=== PATIENT | male | born 1990 | race Two or more races ===

== ENCOUNTER 2018-06-06 20:05 | Emergency (ER) | payer SELFPAY ==
[2018-06-06] MEDS ORDERED: DIAZEPAM INJ 10 MG/2 ML DISP.SYRIN IV ONE (20:22)
[2018-06-06] MEDS ORDERED: KETOROLAC TROMETHAMINE INJ/PF 30 MG/1 ML SDV IV ONE (20:23)
--- NOTE | 2018-06-06 20:25 | ER Document Report ---
ED Medical Screen (RME) - General Chief Complaint: Swallowed Foreign Body Stated Complaint: FOREIGN OBJECT IN THROAT Time Seen by Provider: 06/06/18 20:21 Mode of Arrival: Ambulatory Information source: Patient Notes: 25 years old male had a scratchy throat 2 days ago, today ate some pork strips 2 hours prior to arrival. Since then having a sensation of dysphagia. He was able to drink liquids but not solids. TRAVEL OUTSIDE OF THE [place] IN LAST 30 DAYS: No Past Medical History - Social History Chew tobacco use (# tins/day): No Frequency of alcohol use: Occasional Drug Abuse: None Renal/ Medical History: Denies: Hx Peritoneal Dialysis Physical Exam - Vital signs Vitals: Temp Pulse Resp BP Pulse Ox 98.8 F 60 16 131/79 H 99 06/06/18 20:12 06/06/18 20:12 06/06/18 20:12 06/06/18 20:12 06/06/18 20:12 Course - Vital Signs Vital signs: Temp Pulse Resp BP Pulse Ox 98.8 F 60 16 131/79 H 99 06/06/18 20:12 06/06/18 20:12 06/06/18 20:12 06/06/18 20:12 06/06/18 20:12
[2018-06-06] MEDS ORDERED: GLUCAGON,HUMAN RECOMB 1 MG INJ SUBCUT ONE (20:30)
[2018-06-06] MEDS ORDERED: GLUCAGON,HUMAN RECOMB 1 MG INJ IV ONE (20:44)
--- NOTE | 2018-06-06 21:14 | ER Document Report ---
ED Foreign Body - General Mode of Arrival: Ambulatory Information source: Patient TRAVEL OUTSIDE OF THE [place] IN LAST 30 DAYS: No - General Chief Complaint: Swallowed Foreign Body Stated Complaint: FOREIGN OBJECT IN THROAT Time Seen by Provider: 06/06/18 20:21 Notes: 27-year-old [place]occan-speaking male that presents to the emergency department today with complaints of a sensation that something is "stuck in his throat". Patient states he has had 2-3 days of throat inflammation. Patient describes the sensation as something "sliding down and then back up with burning". Patient states he was eating shredded meat when his symptoms began. Patient denies a history of GERD. Patient states he has associated shortness of breath but denies any vomiting or nasal congestion. (JOHNATHON RUTLEDGE) - Related Data Allergies/Adverse Reactions: vancomycin Allergy (Verified 06/06/18 20:26) Past Medical History - General Information source: Patient - Social History Smoking Status: Current Every Day Smoker Cigarette use (# per day): Yes Chew tobacco use (# tins/day): No Frequency of alcohol use: Social Drug Abuse: None Lives with: Family Family History: Reviewed & Not Pertinent Patient has suicidal ideation: No Patient has homicidal ideation: No Surgical Hx: Negative Review of Systems - Review of Systems Constitutional: No symptoms reported EENT: See HPI, Other - "something stuck in throat". denies: Nose congestion Cardiovascular: No symptoms reported Respiratory: See HPI, Short of breath Gastrointestinal: See HPI, Vomiting - x1 initially, none since Genitourinary: No symptoms reported Male Genitourinary: No symptoms reported Musculoskeletal: No symptoms reported Skin: No symptoms reported Hematologic/Lymphatic: No symptoms reported Neurological/Psychological: No symptoms reported -: Yes All other systems reviewed and negative Physical Exam - Vital signs Vitals: Temp Pulse Resp BP Pulse Ox 98.8 F 60 16 131/79 H 99 06/06/18 20:12 06/06/18 20:12 06/06/18 20:12 06/06/18 20:12 06/06/18 20:12 - Notes Notes: PHYSICAL EXAM GENERAL: Alert, interacts well. No acute distress. HEAD: Normocephalic, atraumatic. EYES: Pupils equal, round, and reactive to light. Extraocular movements intact. ENT: Oral mucosa moist, tongue midline. Bifid uvula. Airway is patent, no foreign body appreciated. Post nasal drainage. Cobblestoning of the posterior oropharynx. NECK: Full range of motion. Supple. Trachea midline. LUNGS: Clear to auscultation bilaterally, no wheezes, rales, or rhonchi. No respiratory distress. HEART: Regular rate and rhythm. No murmurs, gallops, or rubs. ABDOMEN: Soft, non-tender. Non-distended. Bowel sounds present in all 4 quadrants. No guarding, rigidity, or rebound. EXTREMITIES: Moves all 4 extremities spontaneously. NEUROLOGICAL: Alert and oriented x3. Normal speech. PSYCH: Normal affect, normal mood. SKIN: Warm, dry, normal turgor. No rashes or lesions noted. (JOHNATHON RUTLEDGE) Course - Re-evaluation Re-evalutation: 06/06/18 22:42 Patient was given glucagon and a GI cocktail in addition to the other medications ordered from [facility], he feels much better, has now been able to drink a drink and swallow applesauce without any difficulty. Requesting to be discharged home. Patient will be discharged home and advised to use nasal saline rinses for the postnasal drip and consider using an antireflux medication such as Zantac. (RICARDO ARIZMENDI) - Vital Signs Vital signs: Temp Pulse Resp BP Pulse Ox 98.2 F 60 16 128/68 H 100 06/06/18 23:00 06/06/18 23:00 06/06/18 23:00 06/06/18 23:00 06/06/18 23:00 Discharge - Discharge Clinical Impression: Bifid uvula Dysphagia Qualifiers: Dysphagia type: esophageal phase Qualified Code(s): R13.10 - Dysphagia, unspecified Rhinitis Qualifiers: Rhinitis type: unspecified Qualified Code(s): J31.0 - Chronic rhinitis Condition: Stable Disposition: HOME, SELF-CARE Additional Instructions: You should take an antacid medication such as Zantac 75 mg twice a day for the next 2 weeks. Please use nasal saline rinses such as a NetiPot or NeilMed Sinus Rinses. This will help to decrease the postnasal drip which is causing some of your pain. Please return if you develop further difficulty swallowing. Scribe Attestation: 06/06/18 23:27 I personally performed the services described in the documentation, reviewed and edited the documentation which was dictated to the scribe in my presence, and it accurately records my words and actions. (RICARDO ARIZMENDI) Scribe Documentation - Scribe Written by Ruth:: Ruth Torres, [id number] acting as scribe for :: Cassandra
--- NOTE | 2018-06-06 21:15 | RADIOLOGY REPORT (SQ) ---
XR CHEST 2 VIEWS HISTORY: Dysphagia. Evaluate for foreign body. COMPARISON: None. FINDINGS: The cardiomediastinal silhouette is unremarkable. The lungs are clear. No pleural effusion or pneumothorax is identified. No radiopaque foreign body is seen. Levocurvature of the thoracolumbar spine centered at T12. IMPRESSION: No acute cardiopulmonary abnormality. No radiopaque foreign body is identified.
[2018-06-06] MEDS ORDERED: MAG HYDROX/AL HYDROX/SIMETH SUSP 30 ML UDCUP PO ONE (21:23)
[2018-06-06] MEDS ORDERED: METOCLOPRAMIDE HCL ORAL SOLN 10 MG/10 ML UDCUP PO ONE (21:23)
[2018-06-06] MEDS ORDERED: LIDOCAINE 2% VISCOUS SOLN 20 ML UDCUP PO ONE (21:23)
[2018-06-06 23:17] VITALS: BP 128/68
== END 2018-06-06 23:05 | disposition home or self-care (01) ==
LOC: ER 20:05
DX: R13.10 Dysphagia, unspecified (principal); Q35.7 Cleft uvula; J31.0 Chronic rhinitis; F17.210 Nicotine dependence, cigarettes, uncomplicated
CPT/HCPCS: 99283; 96374; 96375; 71046; J3360; J1610; J3490; J1885